=== PATIENT | female | born 1990 | race African-American/Black ===

== ENCOUNTER 2020-04-06 16:52 | Emergency (ER) | payer OTHER, SELFPAY ==
[2020-04-06 17:06] VITALS: BP 113/74; PULSE 83; RESP 16; TEMP 36.3; O2SAT 97; BMI 28.8
--- NOTE | 2020-04-06 18:00 | ED.BACK ---
HPI - Back Pain/Injury General Chief Complaint: Back Pain/Injury Stated Complaint: Chest and back pain and left side neck pain Time Seen by Provider: 04/06/20 17:59 Source: patient Mode of arrival: Ambulatory Limitations: no limitations History of Present Illness HPI Narrative: 29-year-old female nonsmoker presents with a chief complaint of sharp and stabbing left-sided chest pain that wraps around her left side. She denies any injury or overuse. She denies any cough, sneezing, shortness of breath. She has had no nausea or vomiting. She denies any injury. She states that she has had these symptoms multiple times over the past few years and has been seen and evaluated on multiple occasions and has been diagnosed with costochondritis. She has had no fever chills. She denies numbness, tingling or weakness. She has no exertional symptoms. She is worse with motion and improves when still. She states this episode has been present for multiple days. MD Complaint: other Onset (ago): day(s) Duration: intermittent Similar Symptoms Previously: Yes Location: left flank and left upper back Severity: severe Quality: sharp Radiation: flank Relieving factors: immobilization Exacerbating factors: movement Associated symptoms: denies other symptoms Related Data Previous Rx's Medication Instructions Recorded ketorolac 10 mg PO Q6H PRN #14 tab 04/06/20 methocarbamol [Robaxin-750] 750 mg PO Q8H #20 tab 04/06/20 Review of Systems Constitutional Constitutional: Denies chills, Denies fatigue, Denies fever(s), Denies frequent falls, Denies lethargy and Denies weakness Eyes Eyes: Denies change in vision, Denies eye discharge, Denies irritation and Denies loss of vision ENT Ears, Nose, Mouth, and Throat: Denies change in voice, Denies dizziness, Denies neck pain, Denies sore throat and Denies throat swelling Cardiovascular Cardiovascular: Denies chest pain, Denies irregular heart rhythm, Denies lightheadedness, Denies palpitations, Denies dyspnea, Denies dyspnea on exertion and Denies orthopnea Respiratory Respiratory: Denies cough, Denies dyspnea, Denies dyspnea on exertion and Denies wheezing Gastrointestinal Gastrointestinal: Denies abdominal pain, Denies change in bowel habits, Denies diarrhea, Denies nausea and Denies vomiting Musculoskeletal Musculoskeletal: Reports back pain, Denies neck pain and Denies numbness Integumentary/Breasts Skin/Breast: Denies pruritus, Denies erythema, Denies rash and Denies wounds Neurologic Neurologic: Denies behavioral changes, Denies confusion, Denies dizziness, Denies frequent falls, Denies loss of vision, Denies numbness and Denies weakness Psychiatric Psychiatric: Denies anxiety, Denies behavioral changes, Denies confusion, Denies depression, Denies homicidal ideation and Denies suicidal ideation Endocrine Endocrine: Denies fatigue, Denies flushing and Denies palpitations Hematologic/Lymphatic Hematologic/Lymphatic: Denies easy bruising Allergic/Immunologic Allergic/Immunologic: Denies urticaria, Denies throat swelling and Denies wheezing Patient History Social History Smoking Status: Never smoker Smoking Status: Never smoker Substance Use Type: does not use Exam Narrative Exam Narrative: GENERAL: [29] year old patient appears stated age. Well-nourished, well-developed patient, in mild distress. HEAD: Atraumatic. Normocephalic. EYES: Pupils equal round and reactive. Extraocular motions intact. No scleral icterus. No injection or drainage. ENT: Nose without bleeding, purulent drainage. Throat without erythema, tonsillar hypertrophy or exudate. Airway patent. NECK: Trachea midline. Non tender CARDIOVASCULAR: Regular rate and rhythm without murmurs, gallops, or rubs. Reproducible left-sided chest pain to palpation following along a left mid rib. No edema or rash RESPIRATORY: Clear to auscultation. Breath sounds equal bilaterally. No wheezes, rales, or rhonchi. GASTROINTESTINAL: Abdomen soft, non-tender, nondistended. EXTREMITIES: No edema or joint tenderness. BACK: Nontender without deformity or crepitance. No flank tenderness. NEURO: AOx3. SKIN: No rash or erythema of visible areas Initial Vital Signs Initial Vital Signs: Vital Signs Temperature 97.3 F L 04/06/20 17:06 Pulse Rate 83 04/06/20 17:06 Respiratory Rate 16 04/06/20 17:06 Blood Pressure 113/74 04/06/20 17:06 Pulse Oximetry 97 04/06/20 17:06 Course Orders Ordered: ED Orders 04/06/20 18:33 XR chest 2V Stat 04/06/20 18:56 Basic Metabolic Panel Stat Complete Blood Count AUTO DIFF Stat D Dimer Stat 04/06/20 19:30 EKG-12 Lead Stat Discontinued Medications Ketorolac Tromethamine (Ketorolac 60 Mg/2 Ml Vial) 60 mg IM NOW ONE Stop: 04/06/20 19:41 Last Admin: 04/06/20 19:43 Dose: 60 mg Documented by: GAURI Vital Signs Vital signs: Vital Signs - 8 hr 04/06/20 18:52 04/06/20 20:14 Pulse Rate 83 84 Respiratory Rate 18 20 Blood Pressure 118/78 115/63 Pulse Oximetry 100 100 MDM - Back Pain/Injury Lab Data Result diagrams: 04/06/20 18:56 04/06/20 18:56 Labs: Lab Results 04/06/20 04/06/20 04/06/20 Range/Units 18:56 18:56 18:56 WBC 6.7 (4.5-11.0) X10^3/uL RBC 4.02 (4.0-5.2) X10^6/uL Hgb 12.2 (12.0-16.0) g/dL Hct 36.3 (36-46) % MCV 90.2 (80-100) fL MCH 30.3 (26-34) PG MCHC 33.6 (30-36) % RDW 13.7 (11.6-14.8) % Plt Count 284 (150-400) X10^3/uL Neut % (Auto) 61.8 (50-75) % Lymph % (Auto) 29.6 (25-40) % [place] % (Auto) 7.7 (3-14) % Eos % (Auto) 0.5 L (2-4) % Baso % (Auto) 0.4 (0-2) % Neut # (Auto) 4200 (4424-6808) /uL Lymph # (Auto) 2000 (2148-5749) /uL [place] # (Auto) 500 (0-900) /uL Eos # (Auto) 0 (0-450) /uL Baso # (Auto) 0 (0-100) /uL D-Dimer 226 (<230) ng/mL Sodium 137 (137-145) mmol/L Potassium 3.9 (3.4-5.1) mmol/L Chloride 103 (98-107) mmol/L Carbon Dioxide 28 (22-32) mmol/L BUN 10 (7-17) mg/dL Creatinine 0.63 (0.52-1.04) mg/dL Estimated GFR > 60.0 (>60) mL/min BUN/Creatinine Ratio 15.9 (6-22) Glucose 93 (70-100) mg/dL Calcium 9.5 (8.4-10.2) mg/dL Imaging Data Chest x-ray: Radiologist's Impression: [address] [id number] ReportSigned Patient: Misty Valenzuela SMR#: [id number]: 1990Acct:[id number]/Sex: 29 / FDate of Service: 04/06/20Loc: EDAccession Number: [id number] Procedure: XR chest 2V Ordering Provider: Eyad Rowell D.O. PROCEDURE: XR CHEST 2V INDICATIONS: left side chest pain TECHNIQUE: 2 views of the chest were acquired. COMPARISON: None. FINDINGS: Surgical changes and devices: None. Lungs and pleura: Lungs are clear. No pleural effusions or pneumothorax. Mediastinum: Mediastinal contours are normal. Heart size is normal. Bones and chest wall: No suspicious bony abnormalities. Soft tissues appear unremarkable. Mild gaseous distension of the stomach. No subdiaphragmatic free air. IMPRESSION: Chest without acute cardiopulmonary abnormalities. No focal airspace disease. Mild gaseous distention of the stomach. Dictated by: Larry Frost M.D. on 04/06/2020 at 17:54 Approved by: Larry Frost M.D. on 04/06/2020 at 17:55 Discharge Plan Departure Patient Disposition: Home Clinical Impression: Acute chest wall pain Instructions: DI for Costochondritis Activity Restrictions/Additional Instructions: *You have been diagnosed with [chest wall pain due to costochondritis likely] *What to do: *Take medications as directed *Follow up with your primary care provider in 2-3 days, call for an appointment. Let them know you were seen in the Emergency Department and that we ask that you be seen in follow up *Return to ER if you should have any new, worsening or concerning symptoms Prescriptions: New ketorolac 10 mg tablet 10 mg PO Q6H PRN (Reason: pain) Qty: 14 RF: 0 methocarbamol [Robaxin-750] 750 mg tablet 750 mg PO Q8H Qty: 20 RF: 0 Referrals: [facility] [Outside]
--- NOTE | 2020-04-06 18:33 | DI.RAD.S_ITS ---
PROCEDURE: XR CHEST 2V INDICATIONS: left side chest pain TECHNIQUE: 2 views of the chest were acquired. COMPARISON: None. FINDINGS: Surgical changes and devices: None. Lungs and pleura: Lungs are clear. No pleural effusions or pneumothorax. Mediastinum: Mediastinal contours are normal. Heart size is normal. Bones and chest wall: No suspicious bony abnormalities. Soft tissues appear unremarkable. Mild gaseous distension of the stomach. No subdiaphragmatic free air. IMPRESSION: Chest without acute cardiopulmonary abnormalities. No focal airspace disease. Mild gaseous distention of the stomach. Dictated by: Larry Frost M.D. on 04/06/2020 at 17:54 Approved by: Larry Frost M.D. on 04/06/2020 at 17:55
[2020-04-06 18:52] VITALS: BP 118/78; PULSE 83; RESP 18; O2SAT 100
[2020-04-06 19:02] LABS: Add Manual Diff / Slide Review NO; Basophils Absolute Auto 0 /uL (0-100); Basophils Percent Auto 0.4 % (0-2); Eosinophils Absolute Auto 0 /uL (0-450); Eosinophils Percent Auto 0.5 % (2-4); Hematocrit 36.3 % (36-46); Hemoglobin 12.2 g/dL (12.0-16.0); Lymphocytes Absolute Auto 2000 /uL (1100-4500); Lymphocytes Percent Auto 29.6 % (25-40); Mean Corpuscular HGB Conc 33.6 % (30-36); Mean Corpuscular Hemoglobin 30.3 PG (26-34); Mean Corpuscular Volume 90.2 fL (80-100); Monocytes Absolute Auto 500 /uL (0-900); Monocytes Percent Auto 7.7 % (3-14); Neutrophils Absolute Auto 4200 /uL (1500-7000); Neutrophils Percent Auto 61.8 % (50-75); Platelet Count 284 X10^3/uL (150-400); Red Blood Cell Count 4.02 X10^6/uL (4.0-5.2); Red Cell Distribution Width 13.7 % (11.6-14.8); White Blood Cell Count 6.7 X10^3/uL (4.5-11.0)
[2020-04-06 19:14] LABS: BUN Creatinine Ratio 15.9 (6-22); Blood Urea Nitrogen 10 mg/dL (7-17); Calcium 9.5 mg/dL (8.4-10.2); Carbon Dioxide 28 mmol/L (22-32); Chloride 103 mmol/L (98-107); Estimated Glomerular Filt Rate > 60.0 mL/min (>60); Glucose 93 mg/dL (70-100); HEMOLYSIS < 15 (0-50); Potassium 3.9 mmol/L (3.4-5.1); Sodium 137 mmol/L (137-145)
[2020-04-06 19:15] LABS: D Dimer 226 ng/mL (<230)
[2020-04-06] MEDS: KETOROLAC 60 MG/2 ML VIAL IM (19:43)
[2020-04-06 20:14] VITALS: BP 115/63; PULSE 84; RESP 20; O2SAT 100
== END 2020-04-06 20:13 | disposition home or self-care (01) ==
PROVIDERS: Emergency Provider Emergency Medicine
DX: R07.89 Other chest pain (principal); M54.9 Dorsalgia, unspecified
CPT/HCPCS: 36415; 71046; 80048; 85025; 85379; 93005; 93010; 96372; 99283; 99284; J1885